=== PATIENT | female | born 1950 | race Caucasian/White ===

== ENCOUNTER 2016-11-23 08:12 | Emergency (ER) | payer MEDICAID ==
[2016-11-23 08:21] VITALS: BP 150/73; BMI 27.3
--- NOTE | 2016-11-23 08:42 | DR.GENAD ---
HPI - PCP Primary Care Physician: cecilia - HPI Comment HPI Comment: LESIONS IN LEG RED UP TO ANKLE. INCREASING PAIN IN LEGS. NO FEVER. - Complaint/Symptoms Chief Complaint Doctors Comments: INFECTED BUG BITE THAT IS GETTING WORSE. Chief Complaint:: patient stated she has been bitten by bugs on her legs that has been going on for several months. she stated the pain is unreal. Self Treatment fo Chief Complaint: see seen her pcp 3 weeks ago for the bites - Nurses notes reviewed Nurses Notes Review: Yes - Source History Provided: Patient - Mode of Arrival Mode of Arrival: Wheelchair - Timing Onset of Chief Complaint: 08/14/16 Came on: Suddenly - Duration Duration: Constant Duration: Days - Severity Severity: Moderate PMH - PMH Past Medical History: Yes Past Medical History: CHF, Diabetes, GERD, Hypertension Past Medical History Comment: pad Past Surgical History: Yes Surgical History: Cholecystectomy, [facility] Surgery, Hysterectomy Past Surgical History Comment: hernia - Family History History of Family Medical Conditions: (unknown) - Social History Does patient currently use any type of tobacco product: Yes Have you used tobacco products in the last 12 months: Yes Type of Tobacco Use: Cigarettes How many years tobacco product used: 50 Does any household member use tobacco: Yes Alcohol Use: None Do you use any recreational Drugs:: No Lives With: Family Lives Where: Home - infectious screening In the last 2 months have you had wt loss of >10#?: NO Have you had fever, night sweats or hemotysis?: No Have you traveled outside the country in the last 6 months?: No Isolation: Standard ROS - Review of Systems Constitutional: No Symptoms Reported Eyes: No Symptoms Reported ENTM: No Symptoms Reported Respiratoy: No Symptoms Reported Cardiovascular: No Symptoms Reported Gastrointestinal/Abdominal: No Symptoms Reported Genitourinary: No Symptoms Reported Neurological: No Symptoms Reported Musculoskeletal: Muscle Pain Integumentary: Change in Color, Lesions (EXTREMITY PUSTULAR LESIONS IN DIFFENT STATE OF HEALING. NO DRAINAGE.) Hematologic/Lymphatic: No Symptoms Reported Endocrine: No Symptoms Reported All Other Systems: Reviewed and Negative PE - Vital Signs Vitals: Temperature 97.9 F Pulse Rate 66 Respiratory Rate 16 Blood Pressure 150/73 O2 Sat by Pulse Oximetry 98 - General Limitations: No Limitations General Appearance: Alert - Head Head Exam: Normal Inspection - Eyes Eye exam: Normal Appearance - ENT ENT Exam: Normal External Ear Exam External Ear Exam: Normal External Inspection TM/Canal Exam: Bilateral Normal Nose Exam: Normal Nose Exam Mouth Exam: Normal Inspection Throat Exam: Normal Inspection - Neck Neck Exam: Normal Inspection - Chest Chest Inspection: Symmetric Chest Wall Rise - Respiratory Respiratory Exam: Normal Lung Sounds Bilat Respiratory Exam: Bilateral Clear to Auscultation - Cardiovascular Cardiovascular Exam: Regular Rate, Normal Rhythm, Normal Heart Sounds - Abdominal Exam Abdominal Exam: Normal Bowel Sounds - Extremities Extremities Exam: Other (LESIONS EXTREMITIES AT DIFFERENT STAGE OF HEALING.) - Back Back Exam: Normal Inspection - Neurologic Neurological Exam: Alert, Oriented X3 - Psychiatric Psychiatric Exam: Normal Affect, Normal Mood - Skin Skin Exam: Erythema MDM - Additional Information Additional Information Obtained From: Family - Differential Diagnosis Differential Diagnosis: CELLULITIS EXTREMITIES Course - Treatment Treatment: SEE ORDERS. - Education/Counseling Education/Counseling: Patient, Family, Education Educated On: Treatment, Diagnosis, Needs for Follow Up ROR - Labs Reviewed Laboratory Results Reviewed?: Yes Result Diagrams: 11/23/16 08:58 Laboratory: WBC 8.5 X10^3/uL (3.6-10.0) 11/23/16 08:58 RBC 4.91 X10^6/uL (3.5-5.4) 11/23/16 08:58 Hgb 13.5 g/dL (12.0-16.0) 11/23/16 08:58 Hct 40.4 % (36.0-47.0) 11/23/16 08:58 MCV 82.2 fL (80.0-100.0) 11/23/16 08:58 MCH 27.4 pg (27.0-34.0) 11/23/16 08:58 MCHC 33.4 g/dL (33.0-35.0) 11/23/16 08:58 RDW 14.5 % (11.6-16.5) 11/23/16 08:58 Plt Count 201 X10^3/uL (150.0-450.0) 11/23/16 08:58 MPV 8.5 fL (7.4-11.0) 11/23/16 08:58 Neut % 60.8 % (42.0-75.0) 11/23/16 08:58 Lymph % 32.2 % (21.0-51.0) 11/23/16 08:58 Dale % 4.2 % (0.0-13.0) 11/23/16 08:58 Eos % 2.0 % (0.9-2.9) 11/23/16 08:58 Baso % 0.8 % (0.2-1.0) 11/23/16 08:58 Neut # 5.2 x10^3/uL (2.2-4.8) H 11/23/16 08:58 Lymph # 2.7 X10^3/uL (1.3-2.9) 11/23/16 08:58 Dale # 0.4 x10^3/uL (0.3-0.8) 11/23/16 08:58 Eos # 0.2 x10^3/uL (0.0-0.2) 11/23/16 08:58 Baso # 0.1 X10^3/uL (0.0-0.1) 11/23/16 08:58 Absolute Nucleated RBC 0.0 /100WBC 11/23/16 08:58 - Diagnosis Discharge Problem: Bug bite Cellulitis Qualifiers: Site of cellulitis: extremity Site of cellulitis of extremity: lower extremity Laterality: right Qualified Code(s): L03.115 - Cellulitis of right lower limb - Discharge Plan Disposition: 01 HOME, SELF-CARE Condition: Stable Prescriptions: Ketorolac Tromethamine [Toradol Tab] 10 mg PO Q8H PRN #15 tab PRN Reason: Pain Sulfamethoxazole-Trimethoprim [BACTRIM DS TAB 800/160 MG *] 1 tab PO BID #20 tab - Follow ups/Referrals Follow ups/Referrals: TONEY WOMACK [Primary Care Provider] - 2 days - Instructions Instructions: Cellulitis, Adult, [id number] Additional Instructions: RETURN TO ED IF WORSE.
[2016-11-23] MEDS ORDERED: TORADOL 60 MG VIAL IM ONE (08:54)
[2016-11-23] MEDS ORDERED: TORADOL 60 MG VIAL ONE (09:03)
[2016-11-23 09:12] LABS: BASOPHILS # (AUTO) 0.1 X10^3/uL (0.0-0.1); BASOPHILS % (AUTO) 0.8 % (0.2-1.0); EOSINOPHILS # (AUTO) 0.2 x10^3/uL (0.0-0.2); HEMATOCRIT 40.4 % (36.0-47.0); HEMOGLOBIN 13.5 g/dL (12.0-16.0); LYMPHOCYTES # (AUTO) 2.7 X10^3/uL (1.3-2.9); LYMPHOCYTES % (AUTO) 32.2 % (21.0-51.0); MEAN CORPUSCULAR HEMOGLOBIN 27.4 pg (27.0-34.0); MEAN CORPUSCULAR HGB CONC 33.4 g/dL (33.0-35.0); MEAN CORPUSCULAR VOLUME 82.2 fL (80.0-100.0); MEAN PLATELET VOLUME 8.5 fL (7.4-11.0); MONOCYTES # (AUTO) 0.4 x10^3/uL (0.3-0.8); MONOCYTES % (AUTO) 4.2 % (0.0-13.0); NEUTROPHILS # (AUTO) 5.2 x10^3/uL (2.2-4.8); NEUTROPHILS % (AUTO) 60.8 % (42.0-75.0); PLATELET COUNT 201 X10^3/uL (150.0-450.0); RED BLOOD COUNT 4.91 X10^6/uL (3.5-5.4); RED CELL DISTRIBUTION WIDTH 14.5 % (11.6-16.5); WHITE BLOOD COUNT 8.5 X10^3/uL (3.6-10.0)
== END 2016-11-23 09:41 | disposition home or self-care (01) ==
LOC: ER 08:33
DX: S80.861A Insect bite (nonvenomous), right lower leg, initial encounter (principal); S80.862A Insect bite (nonvenomous), left lower leg, initial encounter; L03.115 Cellulitis of right lower limb; W57.XXXA Bitten or stung by nonvenomous insect and other nonvenomous arthropods, initial encounter
CPT/HCPCS: 36415; 85025; 96372; 99282; J1885

== ENCOUNTER → 2016-12-28 | Outpatient (CLI) | payer MEDICAID ==
[2016-12-28 12:22] LABS: STOOL FOR WBC POSITIVE (NEGATIVE)
[2016-12-28 12:34] LABS: CRYPTOSPORIDIUM PARVUM ANTIGEN NEGATIVE (NEGATIVE); GIARDIA LAMBLIA ANTIGEN NEGATIVE (NEGATIVE)
== END ==
LOC: LAB 10:47
PROVIDERS: ATTEND Internal Medicine Gastroenterology
DX: K59.1 Functional diarrhea (principal); K92.1 Melena; R19.5 Other fecal abnormalities; B96.89 Other specified bacterial agents as the cause of diseases classified elsewhere
CPT/HCPCS: 82270; 82705; 83630; 87045; 87328; 87329; 87336; 87427; 87493; 87899

== ENCOUNTER 2017-01-25 06:59 | Day surgery (SDC) | payer MEDICAID ==
[2017-01-25] MEDS ORDERED: TETRACAINE 0.5% OPHTH 1 DOSE AFFEYE ONE ×4 (07:13→10:13)
[2017-01-25] MEDS ORDERED: VIGAMOX 0.5% OPHTH 1 DOSE AFFEYE ONE ×5 (07:15→10:26)
[2017-01-25] MEDS ORDERED: NS 500 ML IV 500 ML IV ONE (07:22)
[2017-01-25] MEDS ORDERED: PROLENSA OPHTH 1 DOSE AFFEYE ONE (07:26)
[2017-01-25] MEDS ORDERED: CYCLOGYL 1% OPHTH 1 DOSE OP ONE ×3 (07:30→07:35)
[2017-01-25] MEDS ORDERED: AK-DILATE 2.5% OPHTH 1 DOSE OP ONE ×3 (07:30→07:35)
[2017-01-25] MEDS ORDERED: MYDRIACIL OPHTH 1 DOSE AFFEYE ONE ×3 (07:30→07:35)
[2017-01-25] MEDS ORDERED: DILAUDID INJ ONE (09:24)
[2017-01-25] MEDS ORDERED: BETADINE OPHTH SOLN 5% EACHEYE ONE (10:08)
[2017-01-25] MEDS ORDERED: ADRENALINE CHL INJ IJ ONE ×2 (10:09→10:13)
[2017-01-25] MEDS ORDERED: DUOVISC IO ONE ×2 (10:09→10:13)
[2017-01-25] MEDS ORDERED: XYLOCAINE-MPF 1% IJ ONE ×2 (10:09→10:13)
[2017-01-25] MEDS ORDERED: BSS OPHTH (PLAIN) 500 ML with VANCOMYCIN HCL 500 MG VIAL 25 MG, ADRENALINE CHL INJ 1 MG IR ONE ×6 (10:15)
[2017-01-25] MEDS ORDERED: DIPRIVAN VIAL ONE (10:20)
[2017-01-25 10:46] VITALS: BP 144/70
== END 2017-01-25 10:48 | disposition home or self-care (01) ==
LOC: SURG1 06:59
PROVIDERS: ATTEND Ophthalmology
PROC: 08RJ3JZ Replacement of Right Lens with Synthetic Substitute, Percutaneous Approach (ICD-10-PCS; principal; 2017-01-25 07:45)
PROC: 08DJ3ZZ Extraction of Right Lens, Percutaneous Approach (ICD-10-PCS; principal; 2017-01-25 07:45)
DX: H25.11 Age-related nuclear cataract, right eye (principal); H25.041 Posterior subcapsular polar age-related cataract, right eye
CPT/HCPCS: A4217; J0170; J1170; J3370; J3490